=== PATIENT | male | born 1995 | race Caucasian/White ===

== ENCOUNTER 2018-01-03 18:42 | Emergency (ER) | payer SELFPAY ==
[~2018-01-03] VITALS: Ht 172.7 cm; Wt 88.0 kg
[2018-01-03] MEDS ORDERED: PENICILLIN G BENZATHINE 1,200,000 UNITS/2ML SYR IM ONE (21:15)
[2018-01-03] MEDS ORDERED: ACETAMINOPHEN 500MG TABLET PO ONE (21:15)
[2018-01-03 22:39] VITALS: BP 131/80
== END 2018-01-03 22:41 | disposition home or self-care (01) ==
LOC: ER 19:35
DX: J03.90 Acute tonsillitis, unspecified (principal); J45.909 Unspecified asthma, uncomplicated; F17.200 Nicotine dependence, unspecified, uncomplicated
CPT/HCPCS: 96372; 99283; J0561